=== PATIENT | female | born 1990 | race Native Hawaiian/Other Pacific Islander ===

== ENCOUNTER 2019-07-19 22:11 | Emergency (ER) | payer OTHER ==
[~2019-07-19] VITALS: Ht 170.2 cm; Wt 90.7 kg
[2019-07-19 23:15] VITALS: BP 129/68; TEMP 98.9
== END 2019-07-19 23:15 | disposition home or self-care (01) ==
LOC: ED 22:11
DX: K08.89 Other specified disorders of teeth and supporting structures (principal); K04.7 Periapical abscess without sinus; F17.210 Nicotine dependence, cigarettes, uncomplicated
CPT/HCPCS: 99282

== ENCOUNTER 2019-11-23 17:56 | Outpatient (CLI) | payer OTHER ==
[2019-11-23 18:56] LABS: PLATELET COUNT 268 K/uL (152-353)
[2019-11-23 19:19] LABS: POTASSIUM 4.1 mmol/L (3.6-5.2)
== END 2019-11-23 19:52 | disposition home or self-care (01) ==
LOC: RAD 17:56
PROVIDERS: Family Medicine
DX: M25.571 Pain in right ankle and joints of right foot (principal); F41.9 Anxiety disorder, unspecified; F32.9 Major depressive disorder, single episode, unspecified; Z87.81 Personal history of (healed) traumatic fracture; E66.9 Obesity, unspecified
CPT/HCPCS: 36415; 80053; 81000; 84439; 84443; 85027

== ENCOUNTER 2020-02-14 12:55 | Emergency (ER) | payer OTHER ==
[~2020-02-14] VITALS: Ht 170.2 cm; Wt 86.2 kg
[2020-02-14 13:05] VITALS: BP 134/84; TEMP 98.5
== END 2020-02-14 13:55 | disposition home or self-care (01) ==
LOC: ED 12:55
PROC: 2W3CX1Z Immobilization of Right Lower Arm using Splint (ICD-10-PCS; principal; 2020-02-14)
DX: S63.591A Other specified sprain of right wrist, initial encounter (principal)
CPT/HCPCS: 99283

== ENCOUNTER 2020-03-10 20:39 | Emergency (ER) | payer OTHER ==
[~2020-03-10] VITALS: Ht 170.2 cm; Wt 108.9 kg
[2020-03-10 22:40] VITALS: BP 111/79; TEMP 98.3
== END 2020-03-10 22:49 | disposition home or self-care (01) ==
LOC: ED 20:39
PROC: 2W3QX1Z Immobilization of Right Lower Leg using Splint (ICD-10-PCS; principal; 2020-03-10)
DX: S82.64XA Nondisplaced fracture of lateral malleolus of right fibula, initial encounter for closed fracture (principal); X50.1XXA Overexertion from prolonged static or awkward postures, initial encounter; Y93.01 Activity, walking, marching and hiking; Y92.89 Other specified places as the place of occurrence of the external cause
CPT/HCPCS: 99283

== ENCOUNTER 2020-08-24 20:05 | Emergency (ER) | payer OTHER ==
[~2020-08-24] VITALS: Ht 167.6 cm; Wt 86.2 kg
[2020-08-24 21:42] LABS: PLATELET COUNT 254 K/uL (152-353)
[2020-08-24 21:50] LABS: POTASSIUM 3.6 mmol/L (3.6-5.2); SODIUM 142 mmol/L (136-145)
[2020-08-24 23:01] VITALS: BP 142/80; TEMP 98.5
== END 2020-08-24 23:10 | disposition home or self-care (01) ==
LOC: ED 20:05
PROVIDERS: Family Medicine
DX: J06.9 Acute upper respiratory infection, unspecified (principal); J40 Bronchitis, not specified as acute or chronic; M94.0 Chondrocostal junction syndrome [Tietze]; F17.210 Nicotine dependence, cigarettes, uncomplicated
CPT/HCPCS: 36415; 80053; 84484; 85027; 85379; 93005; 99283; J1885

== ENCOUNTER 2021-02-22 18:10 | Emergency (ER) | payer OTHER ==
[~2021-02-22] VITALS: Ht 167.6 cm; Wt 86.2 kg
[2021-02-22 20:25] VITALS: BP 150/70; TEMP 97.5
== END 2021-02-22 20:30 | disposition home or self-care (01) ==
LOC: ED 18:10
DX: S39.012A Strain of muscle, fascia and tendon of lower back, initial encounter (principal); X58.XXXA Exposure to other specified factors, initial encounter; Y92.89 Other specified places as the place of occurrence of the external cause
CPT/HCPCS: 96372; 99283; J1885